=== PATIENT | female | born 1960 | race Two or more races ===

== ENCOUNTER → 2022-12-12 15:09 | Outpatient (BNVA) | payer OTHER, SELFPAY | PROVIDERS: PCP Internal Medicine; Visit Provider Nurse Practitioner Family | DX: Z13.89 Encounter for screening for other disorder (principal) ==

== ENCOUNTER 2022-12-22 11:55 | Outpatient (REF) | payer OTHER, SELFPAY ==
[2022-12-22 12:52] LABS: Blood Urea Nitrogen 17 mg/dL (9-16); Estimated Glomerular Filt Rate 55
== END 2022-12-22 11:56 | disposition home or self-care (01) ==
LOC: HO.LAB 11:55
PROVIDERS: PCP Internal Medicine; Visit Provider Nurse Practitioner Family
DX: R39.15 Urgency of urination (principal)
CPT/HCPCS: 36415; 82565; 84520

== ENCOUNTER 2023-01-06 11:19 | Outpatient (REF) | payer OTHER, SELFPAY ==
--- NOTE | ~2023-01-06 | CT_ITS ---
EXAMINATION: CT ABDOMEN WITHOUT AND WITH CONTRAST CLINICAL INFORMATION: Malignant neoplasm of unspecified kidney. COMPARISON: None. TECHNIQUE: Contiguous axial thin section helical images of the abdomen were performed before and after the administration of oral contrast and 85 mL of Omnipaque 350 intravenous contrast. The data set was reformatted in the coronal and sagittal planes and reviewed on an independent workstation. This CT examination was performed using dose optimization techniques as appropriate, variously including the following: *Automated exposure control *Adjustment of mA and/or kV according to patient size (this includes techniques or standardized protocols for targeted exams where dose is matched to indication/reason for exam; i.e. extremities or head) *Use of iterative reconstruction technique DLP: 902 mGy-cm. FINDINGS: LUNG BASES: The lung bases are clear. The heart size is normal. LIVER, GALLBLADDER, AND BILIARY TREE: The liver is normal size, contour and density. Postcontrast, no enhancing lesion, cyst or intrahepatic ductal dilatation seen. There are small calcification in the left hepatic lobe largest measuring 5 mm segment to a image 24/3. PANCREAS: The pancreas is normal size and density. Peripancreatic fat borders are preserved. SPLEEN: The spleen is unremarkable. ADRENAL GLANDS AND KIDNEYS: The adrenal glands are symmetrical and normal. The left kidneys is absent or surgically removed. No mass seen in the left renal fossa. The right kidney measures 15 cm in length. There is normal cortical thickness. There is a large cyst upper pole measuring 7.6 cm in maximum dimension with partial exophytic appearance. The rest of the left kidney is unremarkable. No solid enhancing mass or hydronephrosis. No radiopaque calculi seen. BOWEL LOOPS: Scattered stool and gas is seen in the colon without distention. The small bowel loops are normal caliber. Appendix is normal caliber. LYMPH NODES: No abnormal retroperitoneal lymph nodes. VASCULAR: Unremarkable. BONES: No aggressive lytic or sclerotic process seen. CT/CT abdomen wo/w IV con IMPRESSION: 1. Left kidney is absent or surgically removed. There is a large cyst upper pole right kidney. No solid enhancing mass or hydronephrosis seen. 2. No abnormal retroperitoneal or mesenteric lymph nodes seen. 3. Mild constipation. Fleischner guidelines were followed.
[2023-01-06] MEDS: iohexoL 350 MG/ML 100 ML INFUS..BTL 85 ML IV (12:13)
== END 2023-01-06 11:20 | disposition home or self-care (01) ==
LOC: HO.CT 11:19
PROVIDERS: Visit Provider Nurse Practitioner Family
DX: C64.9 Malignant neoplasm of unspecified kidney, except renal pelvis (principal)
CPT/HCPCS: 74170; Q9967

== ENCOUNTER → 2023-01-29 15:41 | Outpatient (BNVA) | payer OTHER, SELFPAY | PROVIDERS: PCP Internal Medicine; Visit Provider Nurse Practitioner Family | DX: Z13.89 Encounter for screening for other disorder (principal) ==

== ENCOUNTER 2024-04-13 12:59 | Outpatient (REF) | payer OTHER, SELFPAY ==
--- NOTE | ~2024-04-13 | US_ITS ---
EXAMINATION: US RETROPERITONEAL LIMITED (RENAL ONLY) CLINICAL INFORMATION: Cyst of kidney, acquired. COMPARISON: CT abdomen without and with contrast 01/06/2023. TECHNIQUE: Real-time imaging of the kidneys. FINDINGS: RIGHT KIDNEY: 16.2 x 6.0 x 5.9 cm (SAG x AP x TRV). The kidney is normal in size, contour, and echogenicity. Renal cortical thickness is normal. No renal calculi or hydronephrosis. A benign slightly complicated 9.2 cm Bosniak class II septated cyst is noted which requires no additional imaging or follow up. On the prior CT scan this appeared entirely normal with no enhancing components. No solid renal masses are seen. LEFT KIDNEY: No left kidney is seen. US/US renal BI IMPRESSION: Benign Bosniak class II right renal cyst, which requires no additional imaging or follow up.
== END 2024-04-13 13:00 | disposition home or self-care (01) ==
LOC: HO.US 12:59
PROVIDERS: PCP Internal Medicine; Visit Provider Nurse Practitioner Family
DX: N28.1 Cyst of kidney, acquired (principal)
CPT/HCPCS: 76775

== ENCOUNTER 2024-07-25 15:22 | Outpatient (AMB) | payer OTHER, SELFPAY ==
--- NOTE | 2024-07-25 15:21 | A.OFFVIS_ITS ---
Intake Visit Reasons: follow up/ Imaging review(set) Intake Note: Patient presents for tele visit today for follow up on: Renal Cyst and Ultrasound Results Imaging Completed: 04/13/24 Urology Med:none Antibiotic Allergy: Sulfa Blood Thinner: Aspirin Cafeteria Attendant Required: No Allergies Sulfa (Sulfonamide Antibiotics) Allergy (Intermediate, Verified 07/25/24 15:49) Blister Medication List - Last Reconciled 07/25/24 by THEODORE Rangel-LESIA albuterol sulfate 90 mcg/actuation inhalation alendronate 70 mg PO QWEEK aspirin 81 mg PO DAILY famotidine 40 mg PO DAILY fluticasone propion-salmeterol 250-50 mcg/dose (Advair Diskus) 1 ea inhalation BID furosemide 20 mg PO BID insulin lispro (Humalog U-100 Insulin) subcut levothyroxine 150 mcg PO DAILY losartan 25 mg PO DAILY metoprolol succinate ER 12.5 mg PO DAILY omeprazole 40 mg PO DAILY rosuvastatin 40 mg PO DAILY semaglutide (Ozempic) mg subcut HPI Comments Details: Kim is a pleasant 64-year-old female patient of Dr. Kramer. She is being followed up on today via telehealth for her complex renal cysts. In discussion with the patient today she reports to be doing and feeling well. She denies any bothersome urinary issues or concerns. Recent renal imaging results reviewed with the patient today. Right kidney is normal in size, contour, and echogenicity. No renal calculi or hydronephrosis. A benign slightly complicated 9.2 cm Bosniak class 2 septated cyst is noted which requires no additional imaging or follow-up per radiology report. No solid renal masses are seen. Left kidney is not seen. Patient has a history of underdeveloped kidney and follows up with Nephrology Dr. Power. We discussed at length potential causes of renal cysts. Previous workup has included CT renal mass protocol that noted right renal cyst. When asked she denies any urinary urgency, urinary frequency, change in urinary stream, incontinence, hematuria, dysuria, fever, and or chills. She otherwise offers no other issues or concerns at this time. [facility] Medical History GERD (gastroesophageal reflux disease) Hypertension Hyperlipidemia Review of Systems Const Reports as per HPI Eyes Reports no additional complaints ENT Reports no additional complaints Card Reports no additional complaints Resp Reports no additional complaints GI Reports as per HPI Reports as per HPI Musc Reports no additional complaints Skin/Breast Details: Patient reports she suffers from psoriasis Neuro Reports no additional complaints Psych Reports no additional complaints Endo Details: patient reports she is a diabetic and is insulin dependent wears an insulin pump to help manage and controll diabetes Physical Exam Const General: cooperative Resp Effort & Inspection: able to speak in complete sentences Psych Attitude: cooperative Thought process: Normal thought process present Thought content: Normal thought content present Insight: Fair insight present (Psych) Judgement: Fair judgement present (Psych) Telehealth Telehealth Telehealth Platform: ELVPHD Location of provider rendering services: practice address Location of patient: address on file Patient Identification confirmed using: Name, : Yes Telehealth method: voice only Patient verbally consented to treatment: Yes Patient verbally consented to billing insurance company: Yes Patient informed of any privacy concerns related to visit: Yes Minutes spent on Phone/Video with Pt.: 15 Results Reviewed Results Reviewed: Date of Service: 04/13/24 Procedure(s): US renal BI FINDINGS: RIGHT KIDNEY: 16.2 x 6.0 x 5.9 cm (SAG x AP x TRV). The kidney is normal in size, contour, and echogenicity. Renal cortical thickness is normal. No renal calculi or hydronephrosis. A benign slightly complicated 9.2 cm Bosniak class II septated cyst is noted which requires no additional imaging or follow up. On the prior CT scan this appeared entirely normal with no enhancing components. No solid renal masses are seen. LEFT KIDNEY: No left kidney is seen. IMPRESSION: Benign Bosniak class II right renal cyst, which requires no additional imaging or follow up. Assessment & Plan Assessment & Plan (1) Solitary kidney, congenital: Code(s): Q60.0 - Renal agenesis, unilateral Category: Medical (2) Complex renal cyst: Code(s): N28.1 - Cyst of kidney, acquired Category: Medical Plan Recent renal imaging results with the patient today; as noted above. Patient denies any urological issues or concerns at this time. Educated, instructed, and encouraged to continue drinking adequate amount of fluid daily. Discussed, educated, and stressed the importance of managing diabetes as well as hypertension for overall health and well-being. Will obtain renal ultrasound in 1 year. Follow-up in 1 year with imaging to be completed prior; or sooner with any issues or concerns Orders: Orders US renal BI 1 Year N28.1 - Cyst of kidney, acquired Patient Instructions: The patient had an opportunity to ask questions regarding the treatment plan. All questions were answered. Physical exam, labs, and imaging were discussed and reviewed in detail. As well as risks, benefits, and discussion of treatment choices. No major barriers to understanding were identified. The patient expressed understanding and agreement with the above treatment plan. The patient was made aware they should contact our office by phone for worsening of their current condition, the appearance of new symptoms, or with any questions or concerns. Compliance is encouraged with any medications and follow up testing that is ordered. It is a privilege to be allowed the opportunity to participate in? your urological care.? Again, if you have any questions or concerns If you have any questions or concerns please do not hesitate to contact me. The office is [phone]. This note is constructed using voice recognition software. While every effort has been made to ensure accuracy atmospheric scientist errors may have been included. Yours sincerely, JAYCEE Rangel Coding Level of Care Code Tele Est Pt Level 3 (32294) Diagnoses Solitary kidney, congenital Q60.0 Complex renal cyst N28.1 Time Spent (min) 15
== END 2024-07-25 15:59 | disposition home or self-care (01) ==
LOC: HO.HUSH 15:23
PROVIDERS: PCP Internal Medicine; Visit Provider Nurse Practitioner Family
DX: Q60.0 Renal agenesis, unilateral (principal); N28.1 Cyst of kidney, acquired
CPT/HCPCS: 99213

== ENCOUNTER → 2024-07-25 15:22 | Outpatient (BNVA) | payer OTHER, SELFPAY | PROVIDERS: PCP Internal Medicine; Visit Provider Nurse Practitioner Family ==

== ENCOUNTER 2025-07-24 08:06 | Outpatient (REF) | payer OTHER, SELFPAY ==
--- OUTSIDE RECORDS SUMMARY | 2024-03-22 12:00 | XMS_ITS ---
Author Organization [facility] Address [address] [place] [address] Care Team Providers Care Die Press Operator Name Role Phone Jelani Kramer MD Primary Care Provider Unavail Hawa Davey Unavailable [phone] Encounters Encounter Location Date Provider Diagnosis [address] [address] 03/22/2024 Hawa Powell Plan Of Treatment No Information Progress Notes * Kim WEBSTERDOB:1960 (65 yo F)Acc No.[id number]:03/22/2024 Progress Note Patient: Kmi HURT Provider: Mariebll Powell DPM :1960 A ge:63 Y S ex:Female Date:03/22/2024 Address:[address] [place] [address] [facility] Pcp:Jelani Kramer MD Subjective: * Chief Complaints: [...] 0 03/22/2024 Generated for Donaldo franklin/Jacque/eTransmitting on: 0 07/24/2025 08:44 AM EDT
--- OUTSIDE RECORDS SUMMARY | 2024-04-25 11:45 | XMS_ITS ---
Author Organization [facility] Address [address] [place] [address] Care Team Providers Care Leaf Binner Name Role Phone Jelani Kramer MD Primary Care Provider Unavail able Hawa Powell Unavailable [phone] Encounters Encounter Location Date Provider Diagnosis [address] [address] 04/25/2024 Hawa Powell Plan Of Treatment No Information Progress Notes * Kim WEBSTERDOB:1960 (65 yo F)Acc No.[id number]:04/25/2024 Progress Note Patient: Kim HURT Provider: Maribell Powell DPM :1960 A ge:64 Y S ex:Female Date:04/25/2024 Address:[address] [place], [place] [id number] Pcp:Jelani Kramer MD Subjective: * Chief Complaints: * * Medical History: Objective: * Vitals: Assessment: Plan: * Treatment: * Images: * The named appointment provid er may or may not be the originator of this progress note, and it is not deemed complete until electronically signed by the appointment provider. Sign off status: Pending * Provider: Maribell Powell DPM Date: 04/25/2024 Generated for Shaynai noemi/Jacque/eTransmitting on: 07/24/2025 08:45 AM EDT
--- OUTSIDE RECORDS SUMMARY | 2025-07-06 04:30 | XMS_ITS ---
[facility] Address [address] [place] [address] Care Team Providers Care Coil Assembler Name Role Phone Jelani Kramer MD Primary Care Provider Unavail able Hawa Powell Unavailable [phone] Medications Medication SIG (Take, Route, Frequency, Duration) Notes Start Date End Date Status Advair HFA Active Furosemide 20 MG Orally Once a day Active Ozempic Active Medrol kaelyn 4mg as directed orally a s directed; Duration: 6 days 09/23/2023 Active Aspirin Active Tremfya Active Ciclopirox Olamine 0.77 % 1 application to affected area Externally Twice a day; Duration: 30 days Not-Taking Extra Depth Orthopedic Shoes (1 Pair) with Customized Heat Molded Multidensity Innersoles (3 Pair) as directed Dx: IDDM (E10.9), Hammertoe Foot Deformity (M20.41,M20.42), Preulcerative Skin Lesion(s) (L85.1) 11/23/2020 Active Nabumetone 500 MG 1 tablet Orally 3 ti mes daily Not-Taking Clobetasol Propionate 0.05 % 1 application to affected area Externally Twice a day; Duration: 14 days 11/01/2018 Not-Taking NovoLOG Active Rosuvastatin Calcium 40 MG 1 tablet Orally Once a day Active Extra Depth Orthopedic Shoes (1 Pair) with Customized Heat Molded Multidensity Innersoles (3 Pair) as directed Dx: IDDM (E10.9), Hammertoe Foot Deformity (M20.41,M20.42), Preulcerative Skin Lesion(s) (L85.1) 08/23/2019 Active Otezla Active Metoprolol Succinate 25 MG Orally Active Losartan Potassium 25 MG 1 tablet Orally Once a day Active Levothyroxine Sodium 150 MCG 1 tablet on an empty stomach in the morning Orally Once a day Active Encounters Encounter Location Date Provider Diagnosis [facility] [place] [address] 07/06/2025 Hawa Powell Plan Of Treatment No Information Progress Notes * Kim WEBSTERDOB:1960 (65 yo F)Acc No.[id number]:07/06/2025 Progress Note Patient: Kim HURT Provider: Maribell Powell DPM :1960 A ge:65 Y S ex:Female Date:07/06/2025 Address:[address] [place], [place] [id number] Pcp:Jelani Kramer MD Subjective: * Chief Complaints: * * Medical History: * Medications: T aking Ozempic , Taking Advair HFA , Taking Furosemide 20 MG Tablet Orally Once a day , Taking Aspirin , Taking Levothyroxine Sodium 150 MCG Tablet 1 tablet on an empty stomach in the morning Orally Once a day , Taking Losartan Potassium 25 MG Tablet 1 tablet Orally Once a day , Taking Metoprolol Succinate 25 MG Capsule ER 24 Hour Sprinkle Orally , Taking NovoLOG , Taking Rosuvastatin Calcium 40 MG Tablet 1 tablet Orally Once a day , Taking Extra Depth Orthopedic Shoes (1 Pair) with Customized Heat Molded Multidensity Innersoles (3 Pair) as directed Dx: IDDM (E10.9), Hammertoe Foot Deformity (M20.41,M20.42), Preulcerative Skin Lesion(s) (L85.1) , Taking Otezla , Taking Extra Depth Orthopedic Shoes (1 Pair) with Customized Heat Molded Multidensity Innersoles (3 Pair) as directed Dx: IDDM (E10.9), Hammertoe Foot Deformity (M20.41,M20.42), Preulcerative Skin Lesion(s) (L85.1) , Taking Tremfya , Taking Medrol kaelyn 4mg Tablet Therapy Pack as directed orally as directed , Not- Taking/PRN Ciclopirox Olamine 0.77 % Cream 1 application to affected area Externally Twice a day , Not-Taking/PRN Nabumetone 500 MG Tablet 1 tablet Orally 3 times daily , Not-Taking/PRN Clobetasol Propionate 0.05 % Cream 1 application to affected area Externally Twice a day Objective: * Vitals: Assessment: Plan: * Treatment: * Images: * The named appointment provid er may or may not be the originator of this progress note, and it is not deemed complete until electronically signed by the appointment provider. Sign off status: Pending * Provider: Maribell Powell DPM Date: 07/06/2025 Generated for Donaldo franklin/Jacque/Patrick on: 07/24/2025 08:43 AM EDT
--- NOTE | ~2025-07-24 | US_ITS ---
EXAMINATION: US KIDNEY BILATERAL HISTORY: N28.1 - Cyst of kidney, acquired TECHNIQUE: Real-time grayscale ultrasound imaging of the kidneys was performed and images were reviewed. COMPARISON: Comparison is made with the prior examination dated 04/13/2024. FINDINGS: Right kidney: The right kidney measures 17.0 x 4.6 x 5.3 cm. Renal parenchymal echotexture and thickness are normal. There is a multiseptated cyst at the upper pole measuring 8.4 x 5.7 x 7.5 cm (previously 9.2 x 6.2 x 8.2 cm). There is no hydronephrosis or renal calculi. Left Kidney: The left kidney is not visualized. US/US renal BI IMPRESSION: Multiseptated cyst at the upper pole of the right kidney which is slightly smaller than on the prior study. Electronically signed by: Brandon Bowman MD 07/24/2025 09:07 AM EDT
--- OUTSIDE RECORDS SUMMARY | 2025-07-24 08:44 | XMS_ITS | Encounter Summary ---
Author Organization [facility], Address [address] [place] [address] Phone Care Team Providers Care Abstract Manager Name Role Phone Jelani Kramer MD Primary Care Provider [phone] Encounter Details Date Type Department Care Team (Late st Contact Info) Description 04/25/2023 Documentation Only [facility] [address] [place] [phone] Eduardo Power DO [address] [place] [phone] Social History Tobacco Use Types Packs/Day Years Used Date Smoking Tobacco: Never Assessed Comments Unknown Sex and Gender Information Value Date Recorded Sex Assigned at Not on file Legal Sex Female 4:32 PM EST Gender Identity Not on file Sexual Orientation Not on file documented as of this encounter Plan of Treatment Upcoming Encounters Date Type Department Care Team (Late st Contact Info) Description 08/16/2025 1:45 PM EDT Office Visit [facility] [address] [place] [phone] Eduardo Power DO [address] [place] [phone] documented as of this encounter Visit Diagnoses Not on filedocumented in this encounter Care Teams Abstract Manager Relationship Specialty Start Date End Date Jelani Kramer MD [address] [place] [address] PCP - General 09/06/19 documented as of this encounter
--- OUTSIDE RECORDS SUMMARY | 2025-07-24 08:45 | XMS_ITS | Encounter Summary ---
Author Organization [facility], Address [address] [place] [address] Phone Care Team Providers Care Electricity Trader Name Role Phone Jelani Kramer MD Primary Care Provider [phone] Encounter Details Date Type Department Care Team (Late st Contact Info) Description 09/27/2023 Documentation Only [facility] [address] [place] [phone] Eduardo Power DO [address] [place] [phone] Social History Tobacco Use Types Packs/Day Years [...] Visit [facility] [address] [place] [phone] Eduardo Power DO [address] [place] [phone] documented as of this encounter Visit Diagnoses Not on filedocumented in this encounter Care Teams Electricity Trader Relationship Specialty Start Date End Date Jelani Kramer MD [address] [place] [address] PCP - General 09/06/19 documented as of this encounter
--- OUTSIDE RECORDS SUMMARY | 2025-07-24 08:45 | XMS_ITS | Clinical Summary ---
Author Organization [facility], Address [address] [place] [address] Phone Care Team Providers Care Child Care Attendant Name Role Phone Jelani Kramer MD Primary Care Provider + [phone] Allergies Active Allergy Reactions Criticality Noted Date Comments Lisinopril Other (see comments) 10/01/2021 Sulfa Antibiotics Hives,Other (see comments) 08/08/2020 Sulfamethoxazole-Trimethopri m Other (see comments) 10/01/2021 Medications rosuvastatin (CRESTOR) 20 MG tablet Comments: Filled Date: Nov 06 2018 12:00AM Duration: 8 Active nitroglycerin (NITROSTAT) 0.4 MG SL tablet nitroglycerin 0.4 mg sublingual tablet Active losartan (COZAAR) 25 MG tablet Comments: Filled Date: Nov 06 2018 12:00AM Duration: 8 Active levothyroxine (SYNTHROID, LEVOTHROID) 150 MCG tablet Comments: Filled Date: Nov 06 2018 12:00AM Duration: 8 Active insulin lispro (HumaLOG) 100 UNIT/ML injection Comments: Filled Date: Nov 22 2018 12:00AM Duration: 9 Active halobetasol (ULTRAVATE) 0.05 % ointment halobetasol propionate 0.05 % topical ointment Active furosemide (LASIX) 20 MG tablet furosemide 20 mg tablet Active famotidine (PEPCID) 20 MG tablet Comments: Filled Date: Nov 06 2018 12:00AM Duration: 8 Active TREMFYA 100 MG/ML solution prefilled syringe 0 Active Adalimumab (Humira Pen) 40 MG/0.4ML Pen-injector Kit Comments: Filled Date: Feb 08 2019 12:00AM Duration: 28 9 Active metoprolol succinate XL (Toprol XL) 25 MG 24 hr tablet Take 0.5 tablets (12.5 mg total) by mouth 1 (one) time each day Do not crush or chew. 45 tablet 3 3 Active Empagliflozin 10 MG tablet Take 10 mg by mouth 1 (one) time each day in the morning 30 tablet 11 4 08/05/20 25 Active Active Problems Problem Noted Date Diagnosed Date Renal mass 10/01/2022 Morbid obesity 10/01/2022 Edema 08/08/2020 Type 2 diabetes mellitus with diabetic nephropat hy 08/08/2020 Stage 3a chronic kidney disease 02/01/2020 Overview (11/05/2020): Update for Diagnosis Load Essential hypertension 01/31/2020 Diabetes mellitus 01/31/2020 Resolved Problems Problem Noted Date Diagnosed Date Resolved Date Lumbosacral radiculopathy 01/31/2020 Degeneration of lumbar intervertebral disc 01/31/2020 01/31/2020 Immunizations Immunization Administration Dates Next Due Hepatitis B 05/29/2019 Influenza (IM) Preservative Free 07/03/2020,10/0 11/2018,07/01/2018 Influenza, Quadrivalent, Preservative Free 07/18 Pfizer SARS-COV-2 01/12/2021 Pneumococcal Polysaccharide 10/17/2010 Zoster 09/17/2019 Social History Tobacco Use Types Packs/Day Years Used Date Smoking Tobacco: Never Assessed Tobacco Cessation:Counseling Given: Not Answered Comments Unknown Sex and Gender Information Value Date Recorded Sex Assigned at Not on file Legal Sex Female 4:32 PM EST Gender Identity Not on file Sexual Orientation Not on file Last Filed Vital Signs Vital Sign Reading Time Taken Comments Blood Pressure 120/70 08/05/2024 4:35 PM EDT Pulse 72 08/05/2024 4:35 PM EDT Temperature - - Respiratory Rate - - Oxygen Saturation - - Inhaled Oxygen Concentration - - Weight 93.4 kg (206 lb) 10/01/2022 5:23 PM EST Height 149.9 cm (4' 11 ) 10/01/2022 5:23 PM EST Body Mass Index 41.61 10/01/2022 5:23 PM EST Plan of Treatment Upcoming Encounters Date Type Department Care Team (Late st Contact Info) Description 08/16/2025 1:45 PM EDT Office Visit [facility], [address] [place] [address] Eduardo Power DO [address] [place] [address] Health Maintenance Due Date Last Done Comments Breast Cancer Screening 1960 Colorectal Cancer Screening: Annual FOBT 2011 Colorectal Cancer Screening: Colonoscopy 2011 Colorectal Cancer Screening: Sigmoidoscopy 2011 Pneumococcal Vaccine: 50+ Years (2 of 2 - PCV) 10/17/2011 10/17/2010 Diabetes: Ophthalmology Exam 01/23/2020 Diabetes: Pedal Pulse Checked 01/23/2020 Diabetes: Sensory Foot Exam 01/23/2020 Diabetes: Visual Foot Exam 01/23/2020 Diabetes: Hemoglobin A1C 02/07/2025 11/09/2024 Influenza Vaccine (#1) 2025 0, 07/03/2020, 08/02/2019, Additional history exists Pneumococcal Vaccine: Peds (0 to 5 Years) and At-Risk Patients (6 to 49 Years) Discontinued 10/17/2010 Hepatitis B Vaccine Aged Out 05/29/2019 No longe r eligible based on patient's age to complete this topic Procedures Procedure Name Priority Date/Time Associated Diagnosis Comments HEMOGLOBIN A1C Routine 11/09/2024 10:26 AM EST from Last 3 Months or Most Recently Relevant to Health Maintenance Results * (ABNORMAL) Hemoglobin A1c (11/09/2024 10:26 AM EST) Hemoglobin A1C 6.8(H) 4.8 - 5.6 % [facility] Comment: Prediabetes: 5.7 - 6.4 Diabetes: >6.4 Glycemic control for adults with diabetes: <7.0 11/09/2024 10:2 6 AM EST 11/09/2024 us Eduardo Power DO LAB BLOOD ORDERABLES Final Resu lt [facility] [address] [place] [address] from Last 3 Months or Most Recently Relevant to Health Maintenance [place] [address] Care Teams Child Care Attendant Relationship Specialty Start Date End Date Jelani Kramer MD [address] [place] [address] PCP - General 09/06/19
--- OUTSIDE RECORDS SUMMARY | 2025-07-24 08:45 | XMS_ITS | Clinical Summary ---
Author Organization [address] [place] [address] [place] [phone] Phone Care Team Providers Care Concrete Engineer Name Role Phone Jelani Kramer MD Primary Care Provider + [phone] Allergies Active Allergy Reactions Criticality Noted Date Comments Lisinopril Unknown,Other 10/01/2021 Sulfa (Sulfonamide Antibiotics) Hives,Other 05/2020 Sulfamethoxazole-Trimethoprim Other 2020 Medications lovastatin (MEVACOR) 40 mg tablet Take 1 Tablet by mouth at bedtime. Active levothyroxine (SYNTHROID, LEVOTHROID) 137 mcg tablet Take 1 Tablet by mouth daily. Active semaglutide (Ozempic) 0.25 mg or 0.5 mg(2 mg/1.5 mL) injection pen Inject into the skin once a week. Active fluticasone-salmet zuleyma (ADVAIR DISKUS) 250-50 mcg/dose diskus inhaler Inhale into the lungs. Active omeprazole (PriLOSEC) [address] capsule Take 40 mg by mouth daily. Active ferrous sulfate 325 mg (65 mg elemental iron) tablet Take 1 Tablet by mouth daily. Active magnesium 250 mg tablet Take 1 Tablet by mouth daily. Active insulin lispro 100 unit/mL injection Inject 100 Units into the skin See Admin Instructions. Active famotidine (PEPCID) 40 mg tablet Take 40 mg by mouth daily. Active losartan (COZAAR) 25 mg tablet Take 25 mg by mouth daily. Active alendronate (FOSAMAX) 70 mg tablet Take 70 mg by mouth every 7 days. Active aspirin 81 mg chewable tablet Take 1 tablet by mouth daily. Active furosemide (LASIX) 20 mg tablet Take 1 tablet by mouth daily. 04/02/20 20 Active albuterol HFA (PROAIR HFA ; PROVENTIL HFA ; VENTOLIN HFA) 90 mcg/actuation inhaler Inhale 1 Puff into the lungs as needed. Active lancets (Accu-Chek Fastclix Lancet Drum) lancets Active gabapentin (NEURONTIN) 100 mg capsule Take 1 capsule (100 mg total) by mouth. 11/05/19 24 Active aspirin oral desensitization 81mg Acti ve albuterol HFA (ProAir HFA) 90 mcg/actuation inhaler Active blood-glucose transmitter device A ctive Mounjaro 2.5 mg/0.5 mL injection INJECT 2.5 MG SUBCUTANEOUSLY ONCE A WEEK 05/02/20 24 Active omeprazole (PriLOSEC) [address] capsule Take 1 capsule (40 mg total) by mouth 1 (one) time each day. Active lovastatin (MEVACOR) 40 mg tablet Take 1 tablet (40 mg total) by mouth 1 (one) time each day. 11/12/19 24 Active losartan (COZAAR) 25 mg tablet Take 1 tablet (25 mg total) by mouth 1 (one) time each day. Active levothyroxine (SYNTHROID, LEVOTHROID) 150 mcg tablet Take 1 tablet (150 mcg total) by mouth 1 (one) time each day before breakfast. Active levothyroxine (SYNTHROID, LEVOTHROID) 137 mcg tablet Take 1 tablet (137 mcg total) by mouth 1 (one) time each day. Active gabapentin (NEURONTIN) 100 mg capsule Take 1 capsule (100 mg total) by mouth. Active furosemide (LASIX) 20 mg tablet Take 1 tablet (20 mg total) by mouth 2 (two) times a day. Active famotidine (PEPCID) 40 mg tablet Take 1 tablet (40 mg total) by mouth 1 (one) time each day. Active aspirin 81 mg EC tablet Take by mouth. 08/25/20 22 Active alendronate (FOSAMAX) 70 mg tablet Take 1 tablet (70 mg total) by mouth. Active predniSONE (DELTASONE) 20 mg tablet Active predniSONE (DELTASONE) 10 mg tablet TAKE 4 TABLETS BY MOUTH ONCE DAILY FOR 4 DAYS, THEN 3 ONCE DAILY FOR 4 DAYS, THEN 2 ONCE DAILY FOR 4 DAYS, THEN 1 ONCE DAILY FOR 4 DAYS, AND THEN 1/2 (ONE-HALF) ONCE DAILY FOR 4 DAYS Active metoprolol succinate (TOPROL-XL) 25 mg 24 hr tablet Take 0.5 tablets (12.5 mg total) by mouth 1 (one) time each day. 03/24/20 Active metoprolol succinate (TOPROL-XL) 25 mg 24 hr tablet Take 0.5 tablets (12.5 mg total) by mouth 1 (one) time each day. Active methocarbamoL (ROBAXIN) 500 mg tablet Take 1 tablet (500 mg total) by mouth every 8 (eight) hours if needed. Active meloxicam (MOBIC) 15 mg tablet TAKE 1 TABLET BY MOUTH ONCE DAILY AFTER A MEAL 08/31/20 Active lidocaine (Lidoderm) 5 % patch Apply 1 patch topically. 11/05/19 Active NovoLOG U-100 Insulin aspart 100 unit/mL injection INFUSE 85 TO 95 UNITS SUBCUTANEOUSLY DAILY VIA INSULIN PUMP 01/08/20 24 Active halobetasol (ULTRAVATE) 0.05 % ointment halobetasol propionate 0.05 % topical ointment Active fluconazole (DIFLUCAN) 150 mg tablet TAKE ONE TABLET BY MOUTH A ONE-TIME DOSE Active Jardiance 10 mg tablet Take 1 tablet (10 mg total) by mouth 1 (one) time each day in the morning. 08/05/20 24 Active doxycycline (ADOXA) 100 mg tablet Active benzonatate (TESSALON) 200 mg capsule Active benzonatate (TESSALON) 100 mg capsule Active apremilast (Otezla) 30 mg tablet Active acetaminophen (TYLENOL) 325 mg capsule Take 2 capsules (650 mg total) by mouth. 11/05/19 24 Active acetaminophen (TYLENOL) 325 mg tablet Take 2 tablets (650 mg total) by mouth every 4 (four) hours if needed. Active methylPREDNISolone (MEDROL DOSPAK) 4 mg tablet TAKE BY MOUTH DIRECTED ON PACKAGE INSERT Active meloxicam (MOBIC) 15 mg tablet TAKE 1 TABLET BY MOUTH ONCE DAILY AFTER A MEAL Active rosuvastatin (CRESTOR) 20 mg tablet 05/18/20 25 Active Active Problems Problem Noted Date Diagnosed Date Class 2 obesity 07/12/2025 Degeneration of lumbar intervertebral disc 07/12 Lumbosacral radiculopathy 07/12/2025 Chest pressure 01/09/2025 Assessment & Plan (01/10/2025 8:41 AM EDT): Stress test as outline above. Orders: Nuclear stress test with myocardial perfusion; Future Left knee pain 10/21/2024 Bilateral tinnitus 08/31/2024 Mixed conductive and sensorineural hearing loss, bilateral 08/31/2024 Morbid obesity ([facility] V24, [facility] V28) 2021 Renal mass 10/01/2022 Gastroesophageal reflux disease 08/25/2022 Hypothyroidism 08/25/2022 Osteoporosis 08/25/2022 Psoriasis 08/25/2022 CAD (coronary artery disease) 01/03/2022 Assessment & Plan (01/10/2025 8:41 AM EDT): She does continue to endorse episodes of chest discomfort as well as left arm numbness and tingling. She did mention that the symptoms do feel reminiscent to those prior to her stenting in 2016. Subsequently, we will update ischemic evaluation in the form of a nuclear stress test. We would like to have this patient exercise however in light of her ongoing left knee pain can be transition to pharmacologic if she is unable to exercise to an adequate capacity.She will continue on cardioprotective medical therapy of aspirin and statin therapy. Instructed to call 911 or go to the emergency room should the patient begin to experience chest pain or pressure lasting greater than 10 minutes does not resolve with rest. Orders: ECG 12 lead Nuclear stress test with myocardial perfusion; Future CHF (congestive heart failure) ([facility] V24, [facility] V28) 01/03/2022 Assessment & Plan (01/10/2025 8:41 AM EDT): Euvolemic upon exam today. She will continue her on her current dose of losartan and furosemide. Encouraged to continue to follow a low-sodium diet and perform daily weights. Patient will reach out to our office with a weight gain of 2 pounds in 1 day or 5 pounds in 5 days accompanied by worsening peripheral edema, shortness of breath or abdominal distention. COPD (chronic obstructive pu lmonary disease) ([facility] V24, [facility] V28) 01/03/2022 Diabetes ([facility] V24, [facility] V28) 01/03/2022 HLD (hyperlipidemia) 01/03/2022 Assessment & Plan (01/10/2025 8:41 AM EDT): Continue statin therapy. Goal LDL less than 70 in the setting of coronary artery disease. Can consider updating a fasting lipid profile prior to her next in office visit unless already performed by her PCP. HTN (hypertension) 01/03/2022 Assessment & Plan (01/10/2025 8:41 AM EDT): Acceptable during today's exam with a reading of 114/62. She will continue on her current dose of losartan. Educated on the importance of diet lifestyle to help further assist in reducing blood pressure. The patient was encouraged to follow low-salt low-fat diet, make purposeful strides towards weight loss, and engage in routine aerobic exercise as tolerated. GAEL (obstructive sleep apnea) 01/03/2022 Edema 08/08/2020 Type 2 diabetes mellitus wit h diabetic nephropathy ([facility] V24, [facility] V28) 08/08/2020 Chronic kidney disease, stage 3a ([facility] V24, C CT/[facility] V28) 02/01/2020 Overview (07/12/2025): Update for Diagnosis Load Encounters Date Type Department Care Team Description 07/12/2025 1:30 PM EDT Office Visit Pulmonology - [address] [phone] Lucy Kohler MD GAEL (obstructive sleep apnea) (Primary Dx); Nocturnal hypoxemia; Morbid obesity ([facility] V24, [facility] V28); Pulmonary emphysema, unspecified emphysema type ([facility] V24, [facility] V28) 07/12/2025 12:30 PM EDT Ancillary Procedure Pulmonology [address] [phone] Pulmonary emphysema, unspecified emphysema type ([facility] V24, [facility] V28); Obesity (BMI 30-39.9) 07/06/2025 7:15 AM EDT - 07/06/2025 11:59 PM EDT Hospital Encounter [facility] [address] [place] [address] Osteoporosis, unspecified osteoporosis type, unspecified pathological fracture presence Discharge Disposition: Home or Self Care 06/27/2025 Telephone Pulmonology [facility] [address] [phone] Lucy Kohler MD [facility] [address] [phone] Annemarie Fletcher MA 06/05/2025 8:04 AM EDT - 06/05/2025 11:59 PM EDT Hospital Encounter [facility] [address] [place] [phone] Encounter for screening mammogram for malignant neoplasm of breast Discharge Disposition: Home or Self Care 06/02/2025 Telephone Pulmonology [facility] [address] [phone] Lucy Kohler MD 05/11/2025 8:00 AM EDT Office Visit [address] [phone] Lucy Kohler MD Pulmonary emphysema, unspecified emphysema type ([facility] V24, [facility] V28) (Primary Dx); GAEL (obstructive sleep apnea); Obesity (BMI 30-39.9) from Last 3 Months Social History Tobacco Use Types Packs/Day Years Used Date Smoking Tobacco: Never Passive Smoke Exposure: Never Smokeless Tobacco: Never Tobacco Cessation:Counseling Given: Not Answered Alcohol Use Standard Drinks/Week Comments Yes 0 (1 standard drink = 0.6 oz pur e alcohol) Comments No Sex and Gender Information Value Date Recorded Sex Assigned at Female 05/19/2025 1:04 PM EDT Legal Sex Female 12:28 PM EST Gender Identity Female 05/19/2025 1:04 PM EDT Sexual Orientation Straight 05/19/2025 1: 04 PM EDT Obstetrics History Para Term AB IAB SAB Ectopic Multiple Livin g Live Births 1 Last Filed Vital Signs Vital Sign Reading Time Taken Comments Blood Pressure 130/56 07/12/2025 1:28 PM EDT Pulse 64 07/12/2025 1:28 PM EDT Temperature 36.1 C (97 F) 07/12/2025 1:28 PM EDT Respiratory Rate 20 07/12/2025 1:28 PM EDT Oxygen Saturation 100% 07/12/2025 1:28 PM EDT Inhaled Oxygen Concentration - - Weight 76.2 kg (168 lb) 07/12/2025 1:28 PM EDT Height 147.3 cm (4' 10 ) 07/12/2025 1:28 PM EDT Body Mass Index 35.11 07/12/2025 1:28 PM EDT Plan of Treatment Upcoming Encounters Date Type Department Care Team (Late st Contact Info) Description 10/11/2025 8:15 AM EST Office Visit Pulmonology - [place] 175 [facility] [address] [place] [phone] Lucy Kohler MD [address] [place] [phone] 11/21/2025 7:50 AM EST Office Visit [facility] [address] [facility] [address] [place] [phone] Nicholas So MD [address] [place] [address] [place] [phone] Health Maintenance Due Date Last Done Comments Diabetes: Annual GFR (Glomerular Filtration Rate) 1962 Diabetes: Annual Foot Exam 1972 Diabetes: Annual Retina Eye Exam 1972 Cervical Cancer Screening: Pap Smear 1983 Cholesterol Screening (Lipid Panel) 10/06/2022 Colorectal Cancer Screening: Colonoscopy 10/06/2022 HIV Screening 10/06/2022 Hepatitis C Screening 10/06/2022 Social Influencers of Health Screening 10/06/2022 Hypertension/CHF/CAD Annual BMP Blood Test 10/09/2022 Depression Screening 11/02/2024 Diabetes: Blood Sugar Control Test (HGBA1C) 05/09/2025 11/09/2024, 11/09/2024 COVID-19 Vaccine (7 - Pfizer risk season) 2025 07/09/2024, 09/05/2023, 08/27/2022, Additional history exists Influenza Vaccine (#1) 2025 , 09/05/2023, 07/18/2023, Additional history exists Diabetes: Annual Urine Albumin-Creatinine Ratio (uACR) 11/09/2025 11/09/2024 Breast Cancer Screening 06/05/2027 06/05/20, 11/21/2021, 01/31/2019 DTaP,Tdap,and Td Vaccines (2 - Td or Tdap) 2034 2024 Osteoporosis Screening (Bone Density Screening) 07/06/2035 07/06/2025, 11/21/2021, 01/18/2019 Hepatitis B Vaccines Completed 05/29/2019, 12/12/2018, 10/21/2018, Additional history exists Zoster Vaccines Completed 09/17/2019, 11/03, 06/28/2018 RSV Immunization Patients Under 20 months Aged Out 09/05/2023 No longer eligible based on patient's age to complete this topic RSV Immunization Adult Patients Completed 09/20/2023, 09/05/2023 Pneumococcal Vaccine: 50+ Years Completed 03/30/2024, 10/17/2010 HIB Vaccines Aged Out No longer eligi ble based on patient's age to complete this topic HPV Vaccines Aged Out No longer eligi ble based on patient's age to complete this topic Hepatitis A Vaccines Aged Out No long er eligible based on patient's age to complete this topic IPV Vaccines Aged Out No longer eligi ble based on patient's age to complete this topic MMR Vaccines Aged Out No longer eligi ble based on patient's age to complete this topic Meningococcal ACWY Vaccine Aged Out N o longer eligible based on patient's age to complete this topic Meningococcal B Vaccine Aged Out No l onger eligible based on patient's age to complete this topic Varicella Vaccines Aged Out No longer eligible based on patient's age to complete this topic Procedures Procedure Name Priority Date/Time Associated Diagnosis Comments PULMONARY FUNCTION TESTING Routine 07/12/2025 1:02 PM EDT Pulmonary emphysema, unspecified emphysema type (CMS/HCC V24, CMS/HCC V28) Obesity (BMI 30-39.9) BD BONE DENSITY DXA AXIAL SKELETON Routine 07/06/2025 8:02 AM EDT Osteoporosis, unspecified osteoporosis type, unspecified pathological fracture presence MG MAMMO DIGITAL SCREENING W LEFTY BILAT Routine 06/05/2025 8:31 AM EDT Encounter for screening mammogram for malignant neoplasm of breast from Last 3 Months Results * Pulmonary function testing: Carbon Monoxide Diffusing Capacity, Flow Volume Loop, Helium Dilution Lung Volumes, Spirometry, Spirometry with Bronchodilator, Vital Capacity Test (07/12/2025 1:02 PM EDT) Impressions Yusra Davila MD - 07/12/2025 1:02 PM EDT 07/12/2025 Spirometry FEV1 is 96% predicted, FVC is 87% predicted, FEV1/FVC ratio is normal, no improvement in FEV1 postbronchodilator TLC is 120% predicted, RV/TLC 140% predicted Diffusion DLCO 109% predicted In summary, this is a normal PFT us Lucy Kohler MD PFT ORDERABLES Final Result * BD Bone Density DXA Axial Skeleton (07/06/2025 8:02 AM EDT) Anatomical Region Laterality Modality Wrist, Hip, L-spine Bone Densito metry 07/06/2025 8:20 AM EDT Impressions 07/06/2025 8:23 AM EDT 1. Osteoporosis. There has been a decrease of 0.8% in bone mineral density in the lumbar spine since the prior examination of 11/21/2021. There has been a decrease of 1.6% in bone mineral density in the right femur and a decrease of 6.8% in bone mineral density in the left femur. 2. FRAX analysis yields a 10-year probability of major osteoporotic fracture of 10.1% and a 10-year probability of hip fracture of 1.6%. Code 54039 -------- FINAL REPORT -------- Dictated By: Rey Pérez Dictated Date: 07/06/2025 08:20 ET Assigned Physician: Rey Pérez Reviewed and Electronically Signed By: Rey Pérez Signed Date: 07/06/2025 08:23 ET Workstation ID: [id number] Transcribed By: Self Edit Transcribed Date: 07/06/2025 08:21 ET Narrative 07/06/2025 8:23 AM EDT HISTORY: The patient is a 65-year-old postmenopausal female with clinical concern for metabolic bone disease. FINDINGS: Dual energy x-ray absorptiometry of the lumbar spine and femurs is performed. The mean bone mineral density at L1-2 is 0.869 gm/cm2 which is 75% of that of young normals and 84% of that of age matched controls. This yields a T-score of -2.5 and a Z-score of -1.4 which is diagnostic of osteoporosis. The mean bone mineral density of the femurs bilaterally is 0.918 gm/cm2 which is 91% of that of young normals and 101% of that of age matched controls. This yields a T-score of -0.7 and a Z-score of 0.1 and there is therefore no evidence of osteoporosis or osteopenia here. However, the T-score of the left femoral neck is -2.6 which is diagnostic of osteoporosis. Procedure Note Rey Pérez MD - 07/06/2025 HISTORY: The patient is a 65-year-old postmenopausal female with clinicalconcern for metabolic bone disease. FINDINGS: Dual energy x-ray absorptiometry of the lumbar spine and femursis performed. The mean bone mineral density at L1-2 is 0.869 gm/cm2 whichis 75% of that of young normals and 84% of that of age matched controls.This yields a T-score of -2.5 and a Z-score of -1.4 which is diagnostic ofosteoporosis. The mean bone mineral density of the femurs bilaterally is 0.918 gm/qq9vxbvj is 91% of that of young normals and 101% of that of age matchedcontrols. This yields a T-score of -0.7 and a Z-score of 0.1 and there istherefore no evidence of osteoporosis or osteopenia here. However, theT-score of the left femoral neck is -2.6 which is diagnostic ofosteoporosis. IMPRESSION: 1. Osteoporosis. There has been a decrease of 0.8% in bone mineraldensity in the lumbar spine since the prior examination of 11/21/2021.There has been a decrease of 1.6% in bone mineral density in the rightfemur and a decrease of 6.8% in bone mineral density in the left femur. 2. FRAX analysis yields a 10-year probability of major osteoporoticfracture of 10.1% and a 10-year probability of hip fracture of 1.6%. Code 77736 -------- FINAL REPORT -------- Dictated By: Rey Pérez Dictated Date: 07/06/2025 08:20 ET Assigned Physician: Rey Pérez Reviewed and Electronically Signed By: Rey Pérez Signed Date: 07/06/2025 08:23 ET Workstation ID: [id number] Transcribed By: Self Edit Transcribed Date: 07/06/2025 08:21 ET Beryl GAMBINO IMKatarina DXA PROCEDURES Final Res ult * MG Mammo Digital Screening w Lefty bilat (06/05/2025 8:31 AM EDT) Anatomical Region Laterality Modality Breast Bilateral Mammography 06/05/2025 10:5 1 AM EDT Impressions 06/05/2025 10:55 AM EDT No mammographic evidence of malignancy. A negative mammogram in the presence of a clinically suspicious palpable abnormality does not preclude the possibility of malignancy or alter the indications for biopsy. PQRI CPT II 3341F Code 33327, 43183 PQRI 225 CPT II 7025F TISSUE DENSITY: The breasts are almost entirely fatty. (BI-RADS Category A) IMPRESSION: Benign. BI-RADS CATEGORY: 1 - NEGATIVE RECOMMENDATION: Screening bilateral mammogram is recommended in 1 year. Mammo Location: [facility], [address], [place] [address] -------- FINAL REPORT -------- Dictated By: Rey Pérez Dictated Date: 06/05/2025 10:51 ET Assigned Physician: Rey Pérez Reviewed and Electronically Signed By: Rey Pérez Signed Date: 06/05/2025 10:55 ET Workstation ID: [id number] Transcribed By: Self Edit Transcribed Date: 06/05/2025 10:51 ET Narrative 06/05/2025 10:55 AM EDT CLINICAL: The patient is a 65 years Female presenting for routine screening mammography. COMPARISON: Most recently 11/21/2021 and most remotely 01/29/2019. TECHNIQUE: Full-field digital mammography of the breasts bilaterally consisting of tomosynthesis in MLO and CC projection is performed in the [employer] [place] 2000-D unit. Computer aided detection utilizing the iCAD system was utilized. FINDINGS: The breasts are again seen to be largely fatty replaced. There is no cluster of microcalcifications, mass, or area of architectural distortion. There is no skin thickening or nipple retraction. Procedure Note Rey Pérez MD - 06/05/2025 CLINICAL: The patient is a 65 years Female presenting for routinescreening mammography. COMPARISON: Most recently 11/21/2021 and most remotely 01/29/2019. TECHNIQUE: Full-field digital mammography of the breasts bilaterallyconsisting of tomosynthesis in MLO and CC projection is performed in the[employer] 2000-D unit. Computer aided detection utilizing the iCADsystem was utilized. FINDINGS: The breasts are again seen to be largely fatty replaced. Thereis no cluster of microcalcifications, mass, or area of architecturaldistortion. There is no skin thickening or nipple retraction. IMPRESSION: No mammographic evidence of malignancy. A negative mammogram in the presence of a clinically suspicious palpableabnormality does not preclude the possibility of malignancy or alter theindications for biopsy. PQRI CPT II 3341F Code 75301, 05098 PQRI 225 CPT II 7025F TISSUE DENSITY: The breasts are almost entirely fatty. (BI-RADS CategoryA) IMPRESSION: Benign. BI-RADS CATEGORY: 1 - NEGATIVE RECOMMENDATION: Screening bilateral mammogram is recommended in 1 year. Mammo Location: [facility], [address] [place] [id number] -------- FINAL REPORT -------- Dictated By: Rey Pérez Dictated Date: 06/05/2025 10:51 ET Assigned Physician: Rey Pérez Reviewed and Electronically Signed By: Rey Pérez Signed Date: 06/05/2025 10:55 ET Workstation ID: [id number] Transcribed By: Self Edit Transcribed Date: 06/05/2025 10:51 ET us Beryl GAMBINO IMG BI PROCEDURES Final Resu lt from Last 3 Months Insurance [employer] Care Teams Concrete Engineer Relationship Specialty Start Date End Date Jelani Kramer MD [address] [place] [address] PCP - General Internal Medicine 01/10/25
--- OUTSIDE RECORDS SUMMARY | 2025-07-24 08:45 | XMS_ITS | Continuity of Care Document ---
Author Organization [facility] [address] [place] [address] Phone [phone] Care Team Providers Care Professional Athletes Coach Name Role Phone Jelani Kramer M.D. Care Team Information Recei valerie [phone] Problems Active Problems Provider Date Type 2 diabetes mellitus Jason Fitzgerald M.D. O nset: 08/25/2022 Asymptomatic coronary heart disease Jason carpio M.D. Onset: 08/25/2022 Psoriasis Jason Fitzgerald M.D. Onset: Gastroesophageal reflux disease Jason Fitzgerald M.D. Onset: 08/25/2022 Hypercholesterolemia aJson Fitzgerald M.D. Onset : 08/25/2022 Osteoporosis Jason Fitzgerald M.D. Onset: Hypothyroidism Jason Fitzgerald M.D. Onset: Diabetes mellitus Jason Fitzgerald M.D. Onset: 0 05/13/2023 Insulin treated type 2 diabetes mellitus Jason shrestha M.D. Onset: 05/13/2023 Social History Type Date Description Comments Sex Female Sex Unknown Lives With Spouse ETOH Use Occasionally consumes alcoho l usually just on weekends Tobacco Use Start: Unknown Patient has never smoked Allergies and adverse reactions Active Allergies Criticality Reaction Severity Comments Date Sulfamethizole Unable to assess criticality 08/25/2022 Medications Active Medications SIG Qnty Indications Order ing Provider Date Ozempic (1 MG/Dose)4mg/3ML Solution Pen-Inject inject 1 mg once weekly for 28 days 3ml Kalani Delarosa M.D. 01/16/2025 Mounjaro2.5mg/0.5ML Solution Auto-Inject inject 2.5 mg weekly subcutaneously 2ml E11.9 Hawa DuffJustin, FRANCY 05/02/2024 Z79.4 Erybuwb530Nwou/ML Solution Infuse 85 To 95 Units Subcutaneously Daily Via Insulin Pump 90ml E11.9 Kalani Delarosa M.D. 01/08/2024 Ngrrizgj558auq Tablets Take 1 Tablet By Mouth Once Daily Jason Fitzgerald M.D. 11/12/2023 Fykcgvhxri01hb Tablets 1 by mouth every day 90tabs Jason Fitzgerald M.D. 11/12/2023 Aspirin Adult Low Rgjo47kc Tablets DR 1 by mouth every day Jason Ftizgerald M.D. 08/25/2022 Advair Arucee626-68eir/Act Aerosol Lucy Kohler MD Metoprolol Succinate ER25mg Tablets ER 24HR Take 1/2 (One-Half) Tablet By Mouth Once Daily Jelani Kramer M.D. Losartan Wuemrtwso72vd Tablets Take 1 Tablet By Mouth Once Daily Jelani Kramer M.D. Brzhujcupt68rr Tablets Take 1 Tablet By Mouth TWICe a week Jelani Kramer M.D. Alendronate Rofeqp78as Tablets Take 1 Tablet By Mouth Once A Week In The Morning With A Full Glass Of Water, 30 Jelani Kramer M.D. Unjbyobepq86mt Capsules DR Take 1 Capsule By Mouth Once Daily Jelani Kramer M.D. Fjixwiomq06qq Tablets Eduardo Leone M.D. History Medications Ozempic (1 MG/Dose)2mg/1.5ML Solution Pen-Inject inject 1.5ml once a week weekly 2units Kalani Delarosa M.D. 01/16/2025 - 01/16/2025 Ozempic (1 MG/Dose)2mg/1.5ML Solution Pen-Inject inject 1.5 ml once a weekly 3ml Kalani Delarosa M.D. 01/16/2025 - 01/16/2025 Vital Signs Date Vital Result Comment 01/16/2025 1:14pm BP Systolic 122 mmHg BP Diastolic 68 mmHg Heart Rate 63 /min Height 59 inches 4'11 Weight 182.50 lb BMI (Body Mass Index) 36.9 kg/m2 Results Test Acquired Date Facility Test Result H/L Range N ote Glucose Fingerstick 01/16/2025 Inhouse Glucose Fingerstick 117 Hemoglobin A1c 01/16/2025 Inhouse Hemoglobin A1c 6.8% Glucose Fingerstick 05/02/2024 Inhouse Glucose Fingerstick 88 Hemoglobin A1c 05/02/2024 Inhouse Hemoglobin A1c 6.5% Glucose Fingerstick 11/12/2023 Inhouse Glucose Fingerstick 98 Glucose Fingerstick 05/13/2023 Inhouse Glucose Fingerstick 152 Hemoglobin A1c 05/13/2023 Inhouse Hemoglobin A1c 6.7% Glucose Fingerstick 08/25/2022 Inhouse Glucose Fingerstick 248 Hemoglobin A1c 08/25/2022 Inhouse Hemoglobin A1c 7.2% Procedures Date Code Description Status 01/16/2025 06104 Glucose Monitoring Interpeta tion And Report Completed 05/13/2023 06317 Additional suppl ies, materials, staff time over and above usual Completed 04/14/2023 NSHOWOFF No Show Office Visit Complet ed 08/25/2022 40896 Additional suppl ies, materials, staff time over and above usual Completed Medical Devices Description No Information Available Encounters Type Date Location Provider Dx Diagnosis Office Visit 01/16/2025 1:00p Main Office IMMANUEL Munguia E11.9 Type 2 diabet es mellitus without complications Z79.4 terminal press operator (current) use of insulin Z96.41 Presence of insulin pump (external) (internal) E78.00 Pure hypercholestero lemia, unspecified E66.9 Obesity, unspecified Z68.36 Body mass index [BMI ] 36.0-36.9, adult Assessments Date Code Description Provider 01/16/2025 E11.9 Type 2 diabetes mellitus wit hout complications IMMANUEL Munguia 01/16/2025 Z79.4 [facility] (current) use of i nsulin IMMANUEL Munguia 01/16/2025 Z96.41 Presence of insulin pump (ex ternal) (internal) IMMANUEL Munguia 01/16/2025 E78.00 Hypercholesterolemia IMMANUEL Munguia 01/16/2025 E66.9 Obesity, unspecified IMMANUEL Munguia 01/16/2025 Z68.36 Body mass index [BMI] 36.0-3 6.9, adult IMMANUEL Munguia Plan of Treatment Future Appointment(s):* 08/01/2025 3:15 pm - Hawa Power, PAVING CREW FOREMAN at Main Office 01/16/2025 - IMMANUEL Munguia* E11.9 Type 2 diabetes mellitus without complications * Z79.4 terminal press operator (current) use of insulin * Z96.41 Presence of insulin pump (external) (internal) * E78.00 Hypercholesterolemia * E66.9 Obesity, unspecified * Z68.36 Body mass index [BMI] 36.0-36.9, adult * Functional Status Description No Information Available Mental Status Description No Information Available Referrals Description No Information Available
--- OUTSIDE RECORDS SUMMARY | 2025-07-24 08:45 | XMS_ITS | Patient Health Record ---
[facility] Address [address] [place] [address] Care Team Providers Care Fireperson Name Role Phone Jelani Kramer MD Primary Care Provider Unavail able Hawa Powell Unavailable [phone] Allergies Allergen (clinical drug ingredient) Drug/Non Drug Allergy documented on EMR Reaction Allergy Type Onset Date Status sulfamethoxazole / trimethoprim Bactrim rash Drug Allergy Active lisinopril Lisinopril coughting, busted veins in eyes, broken ribs Drug Allergy Active Reason For Referral No Information Medications Medication SIG (Take, Route, Frequency, Duration) Notes Start Date End Date Status NovoLOG Active Advair HFA Active Tremfya Active Furosemide 20 MG Orally Once a day Active Ciclopirox Olamine 0.77 % 1 application to affected area Externally Twice a day; Duration: 30 days Not-Taking Otezla Active Ozempic Active Extra Depth Orthopedic Shoes (1 Pair) with Customized Heat Molded Multidensity Innersoles (3 Pair) as directed Dx: IDDM (E10.9), Hammertoe Foot Deformity (M20.41,M20.42), Preulcerative Skin Lesion(s) (L85.1) 11/23/2020 Active Losartan Potassium 25 MG 1 tablet Orally Once a day Active Medrol kaelyn 4mg as directed orally a s directed; Duration: 6 days 09/23/2023 Active Metoprolol Succinate 25 MG Orally Active Aspirin Active Nabumetone 500 MG 1 tablet Orally 3 ti mes daily Not-Taking Levothyroxine Sodium 150 MCG 1 tablet on an empty stomach in the morning Orally Once a day Active Clobetasol Propionate 0.05 % 1 application to affected area Externally Twice a day; Duration: 14 days 11/01/2018 Not-Taking Rosuvastatin Calcium 40 MG 1 tablet Orally Once a day Active Extra Depth Orthopedic Shoes (1 Pair) with Customized Heat Molded Multidensity Innersoles (3 Pair) as directed Dx: IDDM (E10.9), Hammertoe Foot Deformity (M20.41,M20.42), Preulcerative Skin Lesion(s) (L85.1) 08/23/2019 Active Immunizations Vaccine Route Administration Date Status Comme nts Influenza Unknown 07/01/2018 Administered Influenza Unknown 08/02/2019 Administered Influenza Unknown 07/03/2020 Administered COVID-19 Pfizer BioNTech Vaccine Unknown 01/12/2021 Administered Second Dose: 02/02/2021 Social History Tobacco Use: Social History Observation Description Date Details (start date - stop date) Never Smoker NA - NA Tobacco Use/Smoking Question Answer Notes Are you a: nonsmoker Additional Findings: Tobacco Non-User Aggressive non-smoker,Current non-smoker Alcohol Screen Question Answer Notes Did you have a drink contain ing alcohol in the past year? Yes How often did you have a dri nk containing alcohol in the past year? Monthly or less (1 point) How many drinks did you have on a typical day when you were drinking in the past year? 1 or 2 drinks (0 point) Points 1 Interpretation Negative Tobacco use other than smoking: Question Answer Notes Are you an other tobacco user? No Problems Problem Type SNOMED Code ICD Code Onset Dates Problem Status W/U Status Risk Notes Problem Acquired hammer toe of right foot (946693947893921 5) Other hammer toe(s) (acquired), right foot (M20.41) Active confirmed Problem Type II diabetes mellitus without complication (347429981) Type 2 diabetes mellitus without complications (E11.9) Active confirmed Problem Acquired hammer toe of left foot (732472079853426 3) Other hammer toe(s) (acquired), left foot (M20.42) Active confirmed Problem Plantar wart (93209294) Plantar wart (B07.0) Active confirmed Problem Psoriasis (8770712) Psoriasis (L40.9) Active confirmed Encounters Encounter Location Date Provider Diagnosis [facility] [place] [address] 07/06/2025 Hawa Powell Plan Of Treatment Pending Test Test Name Order Date X ray : Foot, left 3V 12/23/2022 X ray : Foot, left 3V 09/23/2023 X ray : Foot, right 3V 09/23/2023 X ray : Foot, right 3V 12/23/2022 09586- Biopsy of skin lesion 10/11/2018 Insurance Providers Payer Name Payer Address Payer Phone Subscriber Number Group Number Insured Name Patient Relationship to Insured Coverage Start Date Coverage End Date [facility] ([facility] [address] [place] [id number] Kim Younger Self - patient is the insured Medical (General) History Medical History History ICD Code Broken bones Diabetic Psoriasis Kidney disease Surgical History Surgery Date(Month/Year) carpal tunnel c section 1980 trigger finger 2008 right wrist 07/21/2019 knee surgery - left 05/22/20
--- OUTSIDE RECORDS SUMMARY | 2025-07-24 08:45 | XMS_ITS | Encounter Summary ---
Author Organization [facility], Address [address] [place] [address] Phone Care Team Providers Care Automobile Accessories Installer Name Role Phone Jelani Kramer MD Primary Care Provider [phone] Encounter Details Date Type Department Care Team (Late st Contact Info) Description 02/10/2024 Documentation Only [facility] [address] [place] [phone] Eduardo Power DO [address] [place] [phone] Social History Tobacco Use Types Packs/Day Years [...] Visit [facility] [address] [place] [phone] Eduardo Power DO [address] [place] [address] documented as of this encounter Visit Diagnoses Not on filedocumented in this encounter Care Teams Automobile Accessories Installer Relationship Specialty Start Date End Date Jelani Kramer MD [address] [place] [id number] PCP - General 09/06/19 documented as of this encounter
== END 2025-07-24 08:07 | disposition home or self-care (01) ==
LOC: HO.US 08:06
PROVIDERS: PCP Internal Medicine; Visit Provider Nurse Practitioner Family
DX: N28.1 Cyst of kidney, acquired (principal)
CPT/HCPCS: 76775

== ENCOUNTER → 2025-07-24 08:07 | Outpatient (BNV) | payer OTHER, SELFPAY | PROVIDERS: PCP Internal Medicine; Visit Provider Radiology Diagnostic Radiology | DX: N28.1 Cyst of kidney, acquired (principal) | CPT/HCPCS: 76775 ==

== ENCOUNTER 2025-08-02 07:46 | Outpatient (AMB) | payer OTHER, SELFPAY ==
--- OUTSIDE RECORDS SUMMARY | 2024-03-22 12:00 | XMS_ITS ---
Author Organization [facility] Address [address] [place] [phone] Care Team Providers Care Hazardous Materials Waste Technician Name Role Phone Jelani Kramer MD Primary Care Provider Unavail Hawa Davey Unavailable [phone] Encounters Encounter Location Date Provider Diagnosis [address] [address] 03/22/2024 Hawa Powell Plan Of Treatment No Information Progress Notes * Kim WEBSTERDOB:1960 (65 yo F)Acc No.[id number]:03/22/2024 Progress Note Patient: Kim HURT Provider: Maribell Powell DPM :1960 A ge:63 Y S ex:Female Date:03/22/2024 Address:[address] [place] [address] [facility] Pcp:Jelani Kramer MD Subjective: * Chief Complaints: * * Medical History: Objective: * Vitals: Assessment: Plan: * Treatment: * Images: * The named appointment provid er may or may not be the originator of this progress note, and it is not deemed complete until electronically signed by the appointment provider. Sign off status: Pending * Provider: Maribell Powell DPM Date: 0 03/22/2024 Generated for Donaldo franklin/Jacque/eTransmitting on: 1 07:49 AM EDT
--- OUTSIDE RECORDS SUMMARY | 2024-04-25 11:45 | XMS_ITS ---
Author Organization [facility] Address [address] [place] [address] Care Team Providers Care Copyright Clerk Name Role Phone Jelani Kramer MD Primary Care Provider Unavail able Hawa Powell Unavailable [phone] Encounters Encounter Location Date Provider Diagnosis [address] [address] 04/25/2024 Hawa Powell Plan Of Treatment No Information Progress Notes * Kim WEBSTERDOB:1960 (65 yo F)Acc No.[id number]:04/25/2024 Progress Note Patient: Kim HURT Provider: Maribell Powell DPM :1960 A ge:64 Y S ex:Female Date:04/25/2024 Address:[address] [place], [place] [id number] Pcp:Jelani Kramer MD Subjective: * Chief Complaints: * * Medical History: Objective: * Vitals: Assessment: Plan: * Treatment: * Images: * The named appointment provid er may or may not be the originator of this progress note, and it is not deemed complete until electronically signed by the appointment provider. Sign off status: Pending * Provider: Maribell Powell DPM Date: 0 04/25/2024 Generated for Donaldo franklin/Jacque/eTransmitting on: 07:50 AM EDT
--- OUTSIDE RECORDS SUMMARY | 2025-07-06 04:30 | XMS_ITS ---
Author Organization [facility] Address [address] [place] [address] Care Team Providers Care Agricultural Production Engineer Name Role Phone Jelani Kramer MD Primary Care Provider Unavail able Hawa Powell Unavailable [phone] Medications Medication SIG (Take, Route, Frequency, Duration) [...] Active Encounters Encounter Location Date Provider Diagnosis [facility] [place] [address] 07/06/2025 Hawa Powell Plan Of Treatment No Information Progress Notes * Kim WEBSTERDOB:1960 (65 yo F)Acc No.[id number]:07/06/2025 Progress Note Patient: Kim HURT Provider: Maribell Powell DPM :1960 A ge:65 Y S ex:Female Date:07/06/2025 Address:[address] [place], [place] [phone] Pcp:Jelani Kramer MD Subjective: * Chief Complaints: [...] * Provider: Maribell Powell DPM Date: 0 07/06/2025 Generated for Donaldo franklin/Jacque/Patrick on: 1 07:49 AM EDT
--- NOTE | 2025-08-02 07:47 | A.OFFVIS_ITS ---
Intake Visit Reasons: 1YR US Intake Note: Patient presents for 1 yr follow up : Renal Cyst and Ultrasound Results Imaging Completed: 07/24/2025 Urology Med:none Antibiotic Allergy: Sulfa Blood Thinner: Aspirin Tube Handler Required: No Accompanied by: Self / Same As Patient Allergies Sulfa (Sulfonamide Antibiotics) Allergy (Intermediate, Verified 08/02/25 08:20) Blister Medication List - Last Reconciled 08/02/25 by THEODORE Rangel-LESIA albuterol sulfate 90 mcg/actuation inhalation alendronate 70 mg PO QWEEK aspirin 81 mg PO DAILY famotidine 40 mg PO DAILY fluticasone propion-salmeterol 250-50 mcg/dose (Advair Diskus) 1 ea inhalation BID furosemide 20 mg PO BID insulin lispro (Humalog U-100 Insulin) subcut levothyroxine 150 mcg PO DAILY losartan 25 mg PO DAILY metoprolol succinate ER 12.5 mg PO DAILY omeprazole 40 mg PO DAILY rosuvastatin 40 mg PO DAILY semaglutide (Ozempic) mg subcut HPI Comments Details: Kim is a pleasant 65-year-old female patient of Dr. Kramer. She presents to the office today for a follow up of her complex renal cyst. In discussion with the patient today she reports to be doing and feeling well. She reports since her last office visit here she has since started Mounjaro and Jardiance and has intentionally lost 20 lb. She also reports to be following up with her PCP regarding ongoing bilateral lower extremity muscle cramps. She discusses her upcoming appointment with vascular. Recent renal imaging results reviewed with the patient today 07/27 multi septated cyst in the upper pole of the right kidney which is slightly smaller than on the prior study. The left kidney is not visualized. Patient has a history of underdeveloped left kidney and follows up with Nephrology Dr. Power. We discussed at length potential causes of renal cysts. When asked she denies any urinary urgency, urinary frequency, change in urinary stream, incontinence, hematuria, dysuria, fever, and or chills. She currently denies any bothersome urinary issues or concerns. All questions were answered. She otherwise offers no other issues or concerns at this time. [facility] Medical History GERD (gastroesophageal reflux disease) Hypertension Hyperlipidemia Review of Systems Const Reports as per HPI Eyes Reports no additional complaints ENT Reports no additional complaints Card Reports no additional complaints Resp Reports no additional complaints GI Reports as per HPI Reports as per HPI Musc Reports no additional complaints Skin/Breast Details: Patient reports she suffers from psoriasis Neuro Reports no additional complaints Psych Reports no additional complaints Endo Details: patient reports she is a diabetic and is insulin dependent wears an insulin pump to help manage and controll diabetes Physical Exam Const General: cooperative, comfortable, no acute distress, well developed, alert and awake Nutritional Appearance: overweight Orientation/consciousness: patient oriented x3 Limitations: no limitations HEENT Head: Yes normal to inspection, Yes normocephalic and Yes atraumatic Ears: hearing grossly normal bilaterally Eyes General: appearance normal, both eyes and all related structures Neck Neck: Yes normal visual inspection and Yes trachea midline Resp Effort & Inspection: normal respiratory effort and able to speak in complete sentences Cardio Rate: regular rate GI Inspection: Yes normal to inspection General: Yes no CVA tenderness Back/Spine/Pelvis Back: no CVA tenderness Neuro General: patient oriented x3 Extrem General: Yes normal to inspection Psych Appearance: grossly normal and well kempt Mental Status: mental status grossly normal Speech and movement: Normal speech and movement present and Clear speech present Affect: normal affect Attitude: cooperative Thought process: Normal thought process present Thought content: Normal thought content present Insight: Fair insight present (Psych) Judgement: Fair judgement present (Psych) Results AMB Urinalysis, Automated UA Leukoctes 0 Lencho/uL Last Edit by CARMEN Mohan on 08/02/25 08:29 UA Nitrite Last Edit by CARMEN Mohan on 08/02/25 08:29 UA Urobilinogen 0.2 mg/dL Last Edit by CARMEN Mohan on 08/02/25 08:2 9 UA Protein 0 mg/dL Last Edit by CARMEN Mohan on 08/02/25 08:29 UA pH 6.0 Last Edit by CARMEN Mohan on 08/02/25 08:29 UA Blood 0 Andres/uL Last Edit by CARMEN Mohan on 08/02/25 08:29 UA Specific Burton 1.015 Last Edit by CARMEN Mohan on 08/02/25 08: 29 UA Ketone Negative Last Edit by CARMEN Mohan on 08/02/25 08:29 UA Bilirubin 0 mg/dL Last Edit by CARMEN Mohan on 08/02/25 08:29 UA Glucose 1000 mg/dL Last Edit by CARMEN Mohan on 08/02/25 08:29 Results Reviewed Results Reviewed: Laboratory Last Values Urine pH (Auto) 6.0 08/02/25 08:28 Specific Burton (Auto) 1.015 08/02/25 08:28 Urine Protein (Auto) 0 mg/dL 08/02/25 08:28 Glucose (UA)(Auto) 1000 mg/dL 08/02/25 08:28 Urine Ketones (Auto) Negative 08/02/25 08:28 Urine Blood (Auto) 0 Andres/uL 08/02/25 08:28 Urine Bilirubin (Auto) 0 mg/dL 08/02/25 08:28 Urine Urobilinogen (Auto) 0.2 mg/dL 08/02/25 08:28 Leukocyte Esterase (Auto) 0 Lencho/uL 08/02/25 08:28 Date of Service: 07/24/25 Procedure(s): US renal BI FINDINGS: Right kidney: The right kidney measures 17.0 x 4.6 x 5.3 cm. Renal parenchymal echotexture and thickness are normal. There is a multiseptated cyst at the upper pole measuring 8.4 x 5.7 x 7.5 cm (previously 9.2 x 6.2 x 8.2 cm). There is no hydronephrosis or renal calculi. Left Kidney: The left kidney is not visualized. IMPRESSION: Multiseptated cyst at the upper pole of the right kidney which is slightly smaller than on the prior study. Assessment & Plan Assessment & Plan (1) Complex renal cyst: Code(s): N28.1 - Cyst of kidney, acquired Category: Medical (2) Solitary kidney, congenital: Code(s): Q60.0 - Renal agenesis, unilateral Category: Medical Plan In office urinalysis results with the patient today; as noted above. Recent renal imaging results reviewed with the patient today; as noted above. She currently denies any bothersome urinary issues or concerns. She reports be happy with current voiding parameters. Will continue with surveillance monitoring. We discussed the importance of management and diabetes for improvement in overall health and well-being. All questions were answered. Will obtain renal ultrasound in 1 year. Follow-up in 1 year with imaging to be completed prior; or sooner with any issues, concerns, and or questions. Orders: Orders AMB Urinalysis Automated Today Z13.9 - Encounter for screening, unspecified US renal BI 1 Year N20.0 - Calculus of kidney Patient Instructions: The patient had an opportunity to ask questions regarding the treatment plan. All questions were answered. Physical exam, labs, and imaging were discussed and reviewed in detail. As well as risks, benefits, and discussion of treatment choices. No major barriers to understanding were identified. The patient expressed understanding and agreement with the above treatment plan. The patient was made aware they should contact our office by phone for worsening of their current condition, the appearance of new symptoms, or with any questions or concerns. Compliance is encouraged with any medications and follow up testing that is ordered. It is a privilege to be allowed the opportunity to participate in? your urological care.? Again, if you have any questions or concerns If you have any questions or concerns please do not hesitate to contact me. The office is [phone]. This note is constructed using voice recognition software. While every effort has been made to ensure accuracy bushing press operator errors may have been included. Yours sincerely, JAYCEE Rangel Coding Level of Care Code Est Pt Level 3 (01147) Diagnoses Complex renal cyst N28.1 Solitary kidney, congenital Q60.0
--- OUTSIDE RECORDS SUMMARY | 2025-08-02 07:50 | XMS_ITS | Patient Health Record ---
Author Organization [facility] Address [address] [place] [address] Care Team Providers Care Poultry Buyer Name Role Phone Jelani Kramer MD Primary Care Provider Unavail able Hawa Powell Unavailable [phone] Allergies Allergen (clinical drug ingredient) Drug/Non Drug [...] Problem Acquired hammer toe of right foot (395216507370848 5) Other hammer toe(s) (acquired), right foot (M20.41) Active confirmed Problem Type II diabetes mellitus without complication (958898360) Type 2 diabetes mellitus without complications (E11.9) Active confirmed Problem Acquired hammer toe of left foot (554524834522339 3) Other hammer toe(s) (acquired), left foot (M20.42) Active confirmed Problem Plantar wart (81326329) Plantar wart (B07.0) Active confirmed Problem Psoriasis (6008761) Psoriasis (L40.9) Active confirmed Encounters Encounter Location Date Provider Diagnosis [facility] [place] [address] 07/06/2025 Hawa Powell Plan Of Treatment Pending Test Test Name Order Date X ray : Foot, left 3V 12/23/2022 X ray : Foot, left 3V 09/23/2023 X ray : Foot, right 3V 09/23/2023 X ray : Foot, right 3V 12/23/2022 01900- Biopsy of skin lesion 10/11/2018 Insurance Providers Payer Name Payer Address Payer Phone Subscriber Number Group Number Insured Name Patient Relationship to Insured Coverage Start Date Coverage End Date [facility] ([facility]) [address] [place] [id number] Kim Younger Self - patient is the insured Medical (General) History Medical History History ICD Code Broken bones Diabetic Psoriasis Kidney disease Surgical History Surgery Date(Month/Year) carpal tunnel c section 1980 trigger finger 2008 right wrist 07/21/2019 knee surgery - left 05/22/20
--- OUTSIDE RECORDS SUMMARY | 2025-08-02 07:50 | XMS_ITS | Clinical Summary ---
Author Organization [address] [place] [address] [place] [phone] Phone Care Team Providers Care Date Pitter Name Role Phone Jelani Kramer MD Primary Care Provider + [phone] Allergies Active Allergy Reactions Criticality Noted Date [...] sensorineural hearing loss, bilateral 08/31/2024 Morbid obesity ([facility] V24, [facility] V28) 2021 Renal mass 10/01/2022 [...] myocardial perfusion; Future CHF (congestive heart failure) ([facility] V24, [facility] V28) 01/03/2022 Assessment & Plan [...] distention. COPD (chronic obstructive pu lmonary disease) ([facility] V24, [facility] V28) 01/03/2022 Diabetes (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 ([facility] V24, [facility] V28) 08/08/2020 Chronic kidney disease, stage 3a ([facility] V24, [facility] V[facility]) 02/01/2020 Overview (07/12/2025): Update for Diagnosis Load Encounters Date Type Department Care Team Description 07/12/2025 1:30 PM EDT Office Visit Pulmonology - [address] [phone] Lucy Kohler MD GAEL (obstructive sleep apnea) (Primary Dx); Nocturnal hypoxemia; Morbid obesity ([facility] V24, [facility] V28); Pulmonary emphysema, unspecified emphysema type ([facility] V24, [facility] V28) 07/12/2025 12:30 PM EDT Ancillary Procedure Pulmonology [address] [phone] Pulmonary emphysema, unspecified emphysema type ([facility] V24, [facility] V28); Obesity (BMI 30-39.9) 07/06/2025 7:15 AM EDT - 07/06/2025 11:59 PM EDT Hospital Encounter [facility] [address] [place] [address] Osteoporosis, unspecified osteoporosis type, unspecified pathological fracture presence Discharge Disposition: Home or Self Care 06/27/2025 Telephone Pulmonology [facility] [address] [phone] Lucy Kohler MD [facility] [address] [phone] Annemarie Fletcher MA 06/05/2025 8:04 AM EDT - 06/05/2025 11:59 PM EDT Hospital En[facility] [address] [place] [address] Encounter for screening mammogram for malignant neoplasm of breast Discharge Disposition: Home or Self Care 06/02/2025 Telephone Pulmonology [facility] [address] [phone] Lucy Kohler MD 05/11/2025 8:00 AM EDT Office Visit [address] [phone] Lucy Kohler MD Pulmonary emphysema, unspecified emphysema type ([facility] V24, [facility] V28) (Primary Dx); GAEL (obstructive sleep apnea); [...] 8:15 AM EST Office Visit Pulmonology - [place] [facility] [address] [place] [phone] Lucy Kohler MD [address] [place] [phone] 11/21/2025 7:50 AM EST Office Visit [facility] [address] [facility] [address] [place] [phone] Nicholas So MD [address] [place] [address] [place] [phone] Health Maintenance Due Date Last Done Comments Colorectal Cancer Screening: Colonoscopy 1962 Diabetes: Annual GFR (Glomerular Filtration Rate) 1962 Diabetes: Annual Foot Exam 1972 Diabetes: Annual Retina Eye Exam 1972 Cervical Cancer Screening: Pap Smear 1983 Cholesterol Screening (Lipid Panel) 10/06/2022 HIV Screening 10/06/2022 Hepatitis C Screening 10/06/2022 Social Influencers of Health Screening 10/06/2022 Hypertension/CHF/CAD Annual BMP Blood Test 10/09/2022 Depression Screening 11/02/2024 Diabetes: Blood Sugar Control Test (HGBA1C) 05/09/2025 11/09/2024, 11/09/2024 Influenza Vaccine (#1) 2025 , 09/05/2023, 07/18/2023, [...] Pneumococcal Vaccine: 50+ Years Completed 03/30/2024, 10/17/2010 COVID-19 Vaccine Completed 07/09/2024, 01/2023, 08/27/2022, Additional history exists HIB Vaccines Aged Out No longer eligi [...] probability of hip fracture of 1.6%. Code 50903 -------- FINAL REPORT -------- Dictated By: Rey Pérez Dictated Date: 07/06/2025 08:20 ET Assigned Physician: Rey Pérez Reviewed and Electronically Signed By: Rey Pérez Signed Date: 07/06/2025 08:23 ET Workstation ID: [id number] Transcribed By: Self Edit Transcribed Date: 07/06/2025 [...] density of the femurs bilaterally is 0.918 gm/rx2hbxxh is 91% of that of young normals [...] probability of hip fracture of 1.6%. Code 28195 -------- FINAL REPORT -------- Dictated By: Rey Pérez Dictated Date: 07/06/2025 08:20 ET Assigned Physician: Rey Pérez Reviewed and Electronically Signed By: Rey Pérez Signed Date: 07/06/2025 08:23 ET Workstation ID: [id number] Transcribed By: Self Edit Transcribed Date: 07/06/2025 08:21 ET us Beryl GAMBINO IMKatarina DXA PROCEDURES Final Res [...] for biopsy. PQRI CPT II 3341F Code 57835, 24804 PQRI 225 CPT II 7025F TISSUE DENSITY: The breasts are almost entirely fatty. (BI-RADS Category A) IMPRESSION: Benign. BI-RADS CATEGORY: 1 - NEGATIVE RECOMMENDATION: Screening bilateral mammogram is recommended in 1 year. Mammo Location: [facility], [address] [place] [address] -------- FINAL REPORT -------- Dictated By: Rey Pérez Dictated Date: 06/05/2025 10:51 ET Assigned Physician: Rey Pérez Reviewed and Electronically Signed By: Rey Pérez Signed Date: 06/05/2025 10:55 ET Workstation ID: [id number] Transcribed By: Self Edit Transcribed Date: 06/05/2025 10:51 ET Narrative 06/05/2025 10:55 AM EDT CLINICAL: The patient is a 65 years Female presenting for routine screening mammography. COMPARISON: Most recently 11/21/2021 and most remotely 01/29/2019. TECHNIQUE: Full-field digital mammography of the breasts bilaterally consisting of tomosynthesis in MLO and CC projection is performed in the [employer] 2000-D unit. Computer aided detection utilizing the [...] MLO and CC projection is performed in the[employer] Senographe 2000-D unit. Computer aided detection utilizing the [...] for biopsy. PQRI CPT II 3341F Code 59377, 99221 PQRI 225 CPT II 7025F TISSUE DENSITY: The breasts are almost entirely fatty. (BI-RADS CategoryA) IMPRESSION: Benign. BI-RADS CATEGORY: 1 - NEGATIVE RECOMMENDATION: Screening bilateral mammogram is recommended in 1 year. Mammo Location: [facility], [address] [place] [id number] -------- FINAL REPORT -------- Dictated By: Rey Pérez Dictated Date: 06/05/2025 10:51 ET Assigned Physician: Rey Pérez Reviewed and Electronically Signed By: Rey Pérez Signed Date: 06/05/2025 10:55 ET Workstation ID: [id number] Transcribed By: Self Edit Transcribed Date: 06/05/2025 10:51 ET us Beryl GAMBINO IMG BI PROCEDURES Final Resu lt from Last 3 Months Insurance [employer] [id number] Care Teams Date Pitter Relationship Specialty Start Date End Date Jelani Kramer MD [address] [place] [address] PCP - General Internal Medicine 01/10/25
--- OUTSIDE RECORDS SUMMARY | 2025-08-02 07:50 | XMS_ITS | Continuity of Care Document ---
Author Organization [facility] [address] [place] [address] Phone [phone] Care Team Providers Care Dry Mixer Name Role Phone Jelani Kramer M.D. Care Team Information Recei valerie [phone] Problems Active Problems Provider Date Type 2 diabetes mellitus Jason Fitzgerald M.D. O nset: 08/25/2022 Asymptomatic coronary heart disease Jason carpio M.D. Onset: 08/25/2022 Psoriasis Jason Fitzgerald M.D. Onset: Gastroesophageal reflux disease Jason Fitzgerald M.D. Onset: 08/25/2022 Hypercholesterolemia Jason Fitzgerald M.D. Onset : 08/25/2022 Osteoporosis Jason [...] SIG Qnty Indications Order ing Provider Date Mounjaro2.5mg/0.5ML Solution Auto-Inject inject 2.5 mg weekly subcutaneously 2ml E11.9 Hawa Power, PUMP SERVICER SUPERVISOR 05/02/2024 Z79.4 Mdcmzee212Nvhd/ML Solution Infuse 85 To 95 Units Subcutaneously Daily Via Insulin Pump 90ml E11.9 Kalani Delarosa M.D. 01/08/2024 Sqojombp048tak Tablets Take 1 Tablet By Mouth Once Daily Jason Fitzgerald M.D. 11/12/2023 Tqzvrtazfo94ts Tablets 1 by mouth every day 90tabs Jason Fitzgerald M.D. 11/12/2023 Aspirin Adult Low Oqvz21og Tablets DR 1 by mouth every day Jason Fitzgerald M.D. 08/25/2022 Advair Hecivo979-86pgz/Act Aerosol Lucy Kohler MD Metoprolol Succinate ER25mg Tablets ER 24HR Take 1/2 (One-Half) Tablet By Mouth Once Daily Jelani Kramer M.D. Losartan Qpnvhvpfz84xf Tablets Take 1 Tablet By Mouth Once Daily Jelani Kramer M.D. Lfijgappgr92yh Tablets Take 1 Tablet By Mouth TWICe a week Jelani Kramer M.D. Alendronate Sovujr15nu Tablets Take 1 Tablet By Mouth Once A Week In The Morning With A Full Glass Of Water, 30 Jelani Kramer M.D. Sshstrtti45cg Tablets Eduardo Leone M.D. Cuhgrn15df Tablets 1 tab twice a day Josey Davis PA History Medications Ozempic (1 MG/Dose)2mg/1.5ML Solution Pen-Inject inject 1.5ml once a week weekly 2units Kalani Delarosa M.D. 01/16/2025 - 01/16/2025 Ozempic (1 MG/Dose)2mg/1.5ML Solution Pen-Inject inject 1.5 ml once a weekly 3ml Kalani Delarosa M.D. 01/16/2025 - 01/16/2025 Ozempic (1 MG/Dose)4mg/3ML Solution Pen-Inject inject 1 mg once weekly for 28 days 3ml Kalani Delarosa M.D. 01/16/2025 - 08/01/2025 Vital Signs Date Vital Result Comment 08/01/2025 3:26pm BP Systolic 114 mmHg BP Diastolic 60 mmHg Heart Rate 70 /min Height 59 inches 4'11 Weight 172.00 lb BMI (Body Mass Index) 34.7 kg/m2 Results Test Acquired Date Facility Test Result H/L Range N ote Glucose Fingerstick 08/01/2025 Inhouse Glucose Fingerstick 143 Hemoglobin A1c 08/01/2025 Inhouse Hemoglobin A1c 6.6 Glucose Fingerstick 01/16/2025 Inhouse Glucose Fingerstick 117 [...] A1c 7.2% Procedures Date Code Description Status 08/01/2025 48823 Glucose Monitoring Interpeta tion And Report Completed 01/16/2025 67760 Glucose Monitoring Interpeta tion And Report Completed 05/13/2023 53721 Additional suppl ies, materials, staff time over and above usual Completed 04/14/2023 NSHOWOFF No Show Office Visit Complet ed 08/25/2022 01140 Additional suppl ies, materials, staff time over and above usual Completed Medical Devices Description No Information Available Encounters Type Date Location Provider Dx Diagnosis Office Visit 01/16/2025 1:00p Main Office IMMANUEL Munguia E11.9 Type 2 diabet es mellitus without complications Z79.4 residential (current) use of insulin Z96.41 Presence of insulin pump (external) (internal) E78.00 Pure hypercholestero lemia, unspecified E66.9 Obesity, unspecified Z68.36 Body mass index [BMI ] 36.0-36.9, adult Assessments Date Code Description Provider 08/01/2025 E11.8 Type 2 diabetes mellitus with unspecified complications Hawa Power CNP 08/01/2025 Z79.4 residential (current) use of i nsulin Hawa SharmaLori, FRANCY 08/01/2025 Z96.41 Presence of insu manuel pump (external) (internal) Hawa SharmaFRANCY Sandoval 08/01/2025 E78.00 Hypercholesterolemia Hawa PleitezLamont, PUMP SERVICER SUPERVISOR 08/01/2025 E66.9 Obesity, unspecified Hawa Power, PUMP SERVICER SUPERVISOR 08/01/2025 M81.0 Age-related oste oporosis without current pathological fracture Hawa Jannet, FRANCY 08/01/2025 Z68.34 Body mass index [BMI] 34.0-3 4.9, adult Hawa SharmaLori, FRANCY 01/16/2025 E11.9 Type 2 diabetes mellitus without complications IMMANUEL Munguia 01/16/2025 Z79.4 exterminator (current) use of i nsulin IMMANUEL Munguia 01/16/2025 Z96.41 Presence of insu manuel pump (external) (internal) IMMANUEL Munguia 01/16/2025 E78.00 Hypercholesterolemia IMMANUEL Munguia 01/16/2025 E66.9 Obesity, unspecified IMMANUEL Munguia 01/16/2025 Z68.36 Body mass index [BMI] 36.0-3 6.9, adult IMMANUEL Munguia Plan of Treatment Future Appointment(s):* 11/03/2025 8:20 am - Hawa Power CNP at Main Office 01/16/2025 - IMMANUEL Munguia* E11.9 Type 2 diabetes mellitus without complications * Z79.4 exterminator (current) use of insulin * Z96.41 Presence of insulin pump (external) (internal) * E78.00 Hypercholesterolemia * E66.9 Obesity, unspecified * Z68.36 Body mass index [BMI] 36.0-36.9, adult * Functional Status Description No Information Available Mental Status Description No Information Available Referrals Description No Information Available
== END 2025-08-02 08:41 | disposition home or self-care (01) ==
LOC: HO.HUSH 07:46
PROVIDERS: PCP Internal Medicine; Visit Provider Nurse Practitioner Family
DX: N28.1 Cyst of kidney, acquired (principal); Q60.0 Renal agenesis, unilateral; Z13.9 Encounter for screening, unspecified
CPT/HCPCS: 99213

== ENCOUNTER → 2025-08-02 07:46 | Outpatient (BNVA) | payer OTHER, SELFPAY | PROVIDERS: PCP Internal Medicine; Visit Provider Nurse Practitioner Family | DX: N28.1 Cyst of kidney, acquired (principal); Q60.0 Renal agenesis, unilateral; Z13.9 Encounter for screening, unspecified | CPT/HCPCS: 81003 ==